=== PATIENT | female | born 2005 | race Caucasian/White ===

== ENCOUNTER 2024-05-11 10:25 | Emergency (ER) | payer OTHER, SELFPAY ==
--- NOTE | 2024-05-11 10:40 | ED_ITS ---
HPI - URI/Sore Throat General Chief Complaint: Upper Respiratory Infection Stated Complaint: Eye Problems/Upper Respiratory Symptoms Time Seen by Provider: 05/11/24 10:53 Source: patient and RN notes reviewed Mode of arrival: ambulatory Limitations: no limitations History of Present Illness HPI Narrative: 18-year-old female presents with concern for sore throat, postnasal drainage. She also reports her left eye is red, irritated was matted shut when she woke up yesterday. She denies fever, aches, chills, sweats MD elicited complaint: sore throat and other (eye discharge) Related Data Allergies Allergy/AdvReac Type Severity Reaction Status Date / Time No Known Allergies Allergy Unverified 02/08/18 14:47 Review of Systems Review of Systems: CONSTITUTIONAL: Denies malaise, chills, sweats, or fever. EYES: Denies visual changes. Reports left eye redness, irritation, discharge. ENT: Reports rhinorrhea, sore throat. CARDIOVASCULAR: Denies chest pain, palpitations, or edema. RESPIRATORY: Denies cough. Denies dyspnea. GASTROINTESTINAL: Denies abdominal pain, nausea, vomiting, diarrhea SKIN: Denies rash or itching. MUSCULOSKELETAL: Denies myalgia. NEUROLOGIC: Denies headache. All systems reviewed & are unremarkable except as noted in HPI and below PMFSH Comments At time of signature, agree with nursing past medical, surgical, social and f amily history. There is no relevant family history pertinent to the presenting complaint Exam Narrative: GENERAL: Well-appearing, well-nourished, and in no acute distress. HEAD: Normocephalic EYES: PERRLA. Left sclera and conjunctiva injected ENT: Nares clear. Mucous membranes moist. TM pearly camp with sharp light reflex bilaterally; no tragal tenderness. Oropharynx not erythematous without lesions. Tonsils not enlarged and without exudate, no drooling, no hoarseness, no trismus, uvula midline. NECK: Supple. No lymphadenopathy CHEST: Clear to auscultation, breath sounds equal. No wheezing, rhonchi, rales, or stridor. No respiratory distress, speaks in full sentences. HEART: Regular rate and rhythm. No murmur heard. SKIN: Warm, dry, no rash. NEURO: Alert and oriented x3. PSYCH: Normal mood and affect Course Course Emergency Course: Patient is aware of diagnosis, understands and agrees to treatment plan. Anticipatory guidance given. Patient agrees to follow-up as directed and is jareth re of reasons to seek care at the emergency department. Portions of this record may have been created with voice recognition software Level of Care: Express [facility] Visit Vital Signs Vital signs: Reviewed. MDM - URI/Sore Throat MDM Narrative Medical decision making narrative: Differential diagnosis considered: Palumbo virus, strep pharyngitis, allergic rhinitis, upper respiratory tract infection, sinusitis, rhinosinusitis, nasopharyngitis. viral pharyngitis, otitis media, otitis externa, pneumonia, bronchitis, viral cough syndrome, viral syndrome, and influenza. Exam findings show no acute concerns or changes; patient is non-toxic appearing and is in no distress. Patient is appropriate for outpatient treatment and follow-up. Lab Data Attestation: I reviewed the patient's lab results. Critical Care Time Critical Care Time Critical Care Time: No Discharge Plan Discharge Clinical Impression: Conjunctivitis Patient Disposition: Home, Self-Care Condition: Stable Instructions: Conjunctivitis (ED) Additional Instructions: Your rapid strep swab was negative today at [facility]. A throat culture will be sent to the laboratory for further testing. If the test is positive, you will receive a phone call within 48 hours and an appropriate antibiotic will be initiated at that time. Do not touch or rub your eye. Use a warm or cool washcloth on your eye for comfort Use eyedrops as directed Practice good handwashing and hygiene to prevent spread of infection You may take Tylenol or ibuprofen for pain Follow-up with PCP or life science research assistant if condition is not improving in 2-3days. Go to the emergency room if you have pain behind your eye, pressure behind your eye, difficulty seeing, or other severe symptoms Patient Language: Faroese Prescriptions: New polymyxin B sulf-trimethoprim 10,000 unit- 1 mg/mL drops 1 drp LEFT EYE Q3H 7 Days Qty: 10 0RF Rx Instructions: while awake; do not exceed 6 doses in 24 hours Follow-up/Referrals: PHYSICIAN,MOBILE DESIGNER [Primary Care Provider] - Time of Disposition: 11:02
[2024-05-11 10:43] VITALS: BP 132/87; PULSE 91; RESP 16; TEMP 36.4; O2SAT 100
[2024-05-11 11:09] LABS: EDCOVIDSCREEN Negative (Negative); EDINFLUASCREEN Negative (Negative); EDINFLUBSCREEN Negative (Negative); EDSTREPNEGPOS1 Negative (Negative)
== END 2024-05-11 11:02 | disposition home or self-care (01) ==
PROVIDERS: Emergency Provider Nurse Practitioner
DX: H10.9 Unspecified conjunctivitis (principal); Z20.822 Contact with and (suspected) exposure to COVID-19
CPT/HCPCS: 87081; 87426; 87804; 87880; 99203; G0463

== ENCOUNTER 2024-08-19 10:36 | Emergency (ER) | payer OTHER, SELFPAY ==
--- NOTE | 2024-08-19 10:37 | ED.URI ---
HPI - URI/Sore Throat General Chief Complaint: Upper Respiratory Infection Stated Complaint: SCRATCHY THROAT/SINUS CONGESTION Time Seen by Provider: 08/19/24 10:37 Source: patient Mode of arrival: ambulatory Limitations: no limitations History of Present Illness HPI Narrative: Sari is a 18-year-old female patient presenting to the clinic today with complaints of scratchy throat, cough, ear pressure, and sinus congestion x1 day. She reports no fever, chills, body aches. Denies any chest pain shortness of breath. No known sick contacts. Has not tried any OTC medications MD elicited complaint: sore throat and nasal congestion Related Data Allergies Allergy/AdvReac Type Severity Reaction Status Date / Time No Known Allergies Allergy Verified 08/19/24 10:48 Review of Systems Review of Systems: Pertinent positives per HPI. Patient denies any fever, chills, rash, headache, visual changes, dizziness,shortness of breath, chest pain, palpitations, nausea, vomiting, diarrhea, constipation, abdominal pain, or any urinary issues. [facility] Past Medical History Medical History History of epilepsy Migraines Social History Social History Smoking status: Current some day smoker Tobacco type: e-cigarettes/vaping Alcohol intake: never Substance use: never Substance use type: does not use Do You Feel Safe in your Home?: Yes Lack of Transportation: No Lack of Food: Never True Current Housing: I Have Housing Concerned About Future Housing: No Difficulty Paying Gas/Electric Bills: No Difficulty Paying for Meds: No Currently Unemployed: No Difficulty w/ Childcare or Family Care: No Comments At the time of my signature, I reviewed and agree with the nursing past medical, surgical, social, and family history. There is no relevant family history pertinent to the patient complaint. Exam Narrative: General: Well-developed, well nourished, in no apparent distress Head: Normocephalic, atraumatic Eyes: Pupils equally round and reactive to light bilaterally, EOM intact, sclera and conjunctive clear, no discharge, lids normal Ears: TMs intact and congested, ear canals clear, no drainage, grossly hearing normal. Nose: Nares patent, clear nasal discharge, no inflammation, no sinus tenderness. Mouth: Oral pharynx without lesions or masses, good dentition, MMM. Postnasal drip Neck: Supple, trachea midline, no enlargement of anterior or posterior cervical nodes, no thyroid masses or goiter palpable. Cardio: Regular rate and rhythm, s1 and s2 normal, no murmur appreciated. Resp: Clear to auscultation bilaterally, no rhonchi, rales, wheezing or rubs Course Course Emergency Course: Portions of this record may have been created with voice recognition software. Level of Care: Express Care Visit Vital Signs Vital signs: Vital Signs Temperature 36.3 C L 08/19/24 10:42 Pulse Rate 80 08/19/24 10:42 Respiratory Rate 16 08/19/24 10:42 Blood Pressure 119/79 08/19/24 10:42 Pulse Oximetry 100 08/19/24 10:42 Oxygen Delivery Room Air 08/19/24 10:42 Temperature 36.3 C L 08/19/24 10:42 Pulse Rate 80 08/19/24 10:42 Respiratory Rate 16 08/19/24 10:42 Blood Pressure 119/79 08/19/24 10:42 Pulse Oximetry 100 08/19/24 10:42 Oxygen Delivery Room Air 08/19/24 10:44 Vital signs reviewed MDM - URI/Sore Throat MDM Narrative Medical decision making narrative: At the time of visit patient is resting comfortably on the exam table. Patient appears to be nontoxic. Labs: Strep test was negative in the clinic today. We will send strep for culture. Plan: I suspect patient has URI/pharyngitis. Supportive measures were discussed with the patient and they voiced understanding discharge instructions and agrees to treatment plan. Return precautions reviewed Differential Diagnosis Differential diagnosis: Likely upper respiratory infection, otitis media, sinusitis, viral infection, bronchitis, influenza, pharyngitis and other (COVID) Discharge Plan Discharge Clinical Impression: Upper respiratory infection Qualifiers: URI type: unspecified URI Qualified Code(s): J06.9 - Acute upper respiratory infection, unspecified Pharyngitis Qualifiers: Pharyngitis/tonsillitis etiology: unspecified etiology Qualified Code(s): J02.9 - Acute pharyngitis, unspecified Patient Disposition: Home, Self-Care Condition: Stable Instructions: Antibiotic Form, Cold Symptoms (ED) Additional Instructions: Strep test was negative in the clinic today. We will send strep for culture. May take DayQuil/NyQuil for cold/flu symptoms Increase fluids and stay well hydrated Tylenol/motrin for pain/fever Flonase and OTC antihistamines as directed Vicks vapor rub to open sinuses Sinus rinses for congestion Cepacol spray, cough drops, throat lozenges, warm tea with honey/lemon, gargle salt water to soothe throat BRAT diet for diarrhea Clear liquids x 24 hours then advance as tolerated for nausea/vomiting Go to the ED if you develop a worsening in your condition- high fever not controlled by Tylenol or Motrin, dehydration, weakness, lethargy, shortness of breath, or chest pain. Follow up with your PCP in 3-5 days if symptoms persist. Patient Language: Martiniquais Prescriptions: No Action rizatriptan 5 mg tablet,disintegrating See Rx Instructions PO .COMPLEX Qty: 9 1RF Rx Instructions: take 1 tablet at onset of headache; if no relief, may repeat 1 tablet after at least 2 hrs PO Qulipta 30 mg tablet 30 mg PO DAILY Qty: 30 2RF Ubrelvy 50 mg tablet 50 mg PO ONCE PRN (Reason: migraine headache) Qty: 10 1RF Rx Instructions: as a single dose; may repeat once in >=2 hours after first dose if needed Follow-up/Referrals: Stephen Hernandez MD [Primary Care Provider] - Stand Alone Forms: Work/School Release IP Time of Disposition: 10:48 Quality NIHSS Nursing Documentation ED NIHSS nursing documentation: reviewed/agree
[2024-08-19 10:42] VITALS: BP 119/79; PULSE 80; RESP 16; TEMP 36.3; O2SAT 100
[2024-08-19 11:03] LABS: EDSTREPNEGPOS1 Negative (Negative)
== END 2024-08-19 11:01 | disposition home or self-care (01) ==
PROVIDERS: Emergency Provider Nurse Practitioner Family; PCP Family Medicine
DX: J06.9 Acute upper respiratory infection, unspecified (principal); J02.9 Acute pharyngitis, unspecified; F17.290 Nicotine dependence, other tobacco product, uncomplicated
CPT/HCPCS: 87081; 87880; 99213; G0463

== ENCOUNTER 2025-01-03 15:12 | Emergency (ER) | payer OTHER, SELFPAY ==
--- OUTSIDE RECORDS SUMMARY | 2025-01-03 15:14 | XMS_ITS | Clinical Summary ---
Author Organization [facility] Address [address] [place] [address] Care Team Providers Care Pilates Coordinator Name Role Phone Debby Banks MD Primary Care Provider Allergies Active Allergy Reactions Criticality Noted Date Comments Sulfa (Sulfonamide Antibiotics) Urticaria Medium 01/2010 Medications lidocaine viscous (XYLOCAINE) 2 % solutionIndicati ons:Strep pharyngitis Apply 10 mL to the mouth or throat every 6 (six) hours as needed (sore throat) May mix with 30 ml of Mylanta 100 mL Active Additional Information Patient not taking.Reported on 04/09/2024 Active Problems Problem Noted Date Diagnosed Date 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 Bilateral foot pain 2. Hallux valgus, acquired, bilateral 3. Metatarsalgia of both feet Bilateral foot pain likely secondary to transfer metatarsalgia as a result of bilateral hallux valgus. PLAN: 1. Questions solicited and answered. 2. Continue with existing conservative treatment program: shoe inserts and metatarsal pads 3. Medications Prescribed: none 4. Activity Restrictions: none 5. Weightbearing status: No Restrictions 6. Follow up: in 3 month(s) without X-rays Cephalalgia 07/25/2012 Spells of trembling 07/25/2012 Bronchial asthma 12/19/2011 Epilepsy 02/14/2011 Chiari malformation type I 11/03/2010 Seizure syndrome 11/03/2010 Immunizations Immunization Administration Dates Next Due DTaP 08/30/2006, 6,06/26/2005,03/15 DTaP / Hep B / IPV 08/01/2005,06/26/2005, 005 DTaP / IPV 12/26/2009 DTaP 5 Pertussis 12/26/2009 HPV9 2016,08/06/2016,02/24/2016 Hep A, Ped Unspecified 12/11/2007,12/30/2006 Hep A, Pediatric 12/11/2007,12/30/2006 Hep B, Adolescent or Pediatric 6,06/26/2005,03/15/2005,12/27 HiB 08/30/2006, 6,06/26/2005,03/15 Hib (PRP-D) 08/30/2006, 6,06/26/2005,03/15 IPV 08/30/2006, 6,06/26/2005,03/15 Influenza, Quadrivalent, Kimberli l Culture-based MDCK, Preservative Free, Antibiotic Free, Intramuscular 03/27/2021 Influenza, Quadrivalent, Spl it, Intramuscular 03/16/2019 Influenza, Quadrivalent, Spl it, Preservative Free, Intramuscular 02/16/2020,02/11/2018,02/22/2017,02/23,02/21/2016 Influenza, Split 04/25/2009,03/29/2008 Influenza, Unspecified 05/22/2007,05/21/2006,09/2005 MMR 12/26/2009,2005 Meningococcal B, Recombinant (Trumenba) 01/05/2021 Meningococcal MCV4P (Menactra) 01/05/2021,2015 Pneumococcal Conjugate 7-Valent 12/28/19 06,08/01/2005,06/26/2005,03/15 Pneumococcal Conjugate, Unspecified 12/18,08/01/2005,06/26/2005,03/15 Tdap 12/28/2015 Varicella 12/26/2009,08/30/2006 Surgical History Surgery Date Site/Laterality Comments NO PAST SURGERIES Medical History Medical History Date Comments Functional neurological symptom disorder with at tacks or seizures Epilepsy (HCC) Asthma Family History Medical History Relation Name Comments COPD Father Lung cancer Maternal Grandfather Lung disease Paternal Grandfather Diabetes Paternal Grandmother Relation Name Status Comments Father Maternal Grandfather Paternal Grandfather Paternal Grandmother Social History Tobacco Use Types Packs/Day Years Used Date Smoking Tobacco: Never Smokeless Tobacco: Never Comments No Sex and Gender Information Value Date Recorded Sex Assigned at Not on file Legal Sex Female 7:12 PM PEANUT FARMER Gender Identity Not on file Sexual Orientation Not on file History Length Weight Head Circum Date/Time Gestation Age D/C Weight APGARs Delivery Method Feeding 2004 Full term Obstetrics History Last Filed Vital Signs Vital Sign Reading Time Taken Comments Blood Pressure 120/78 04/09/2024 9:32 AM PEANUT FARMER Pulse 95 04/09/2024 9:32 AM PEANUT FARMER Temperature 36.8 C (98.2 F) 04/09/2024 9:32 AM PEANUT FARMER Respiratory Rate 20 04/09/2024 9:32 AM PEANUT FARMER Oxygen Saturation 99% 04/09/2024 9:32 AM PEANUT FARMER Inhaled Oxygen Concentration - - Weight 109.3 kg (241 lb) 04/09/2024 9:32 AM PEANUT FARMER Height 170.2 cm (5' 7) 04/09/2024 9:32 AM PEANUT FARMER Body Mass Index 37.75 04/09/2024 9:32 AM PEANUT FARMER Plan of Treatment Health Maintenance Due Date Last Done Comments Depression Screening 2004 Hepatitis C Screening 2004 Pneumococcal vaccine <65 (1 of 1 - PPSV23, PCV20, or PCV21) 2010 2005, 2005, 08/01/2005, Additional history exists Meningococcal B Vaccine (2 o f 2 - Trumenba SCDM 2-dose series) 07/08/2021 01/05/2021 Regular Well Visit/Exam 18-64 2022 Covid-19 Vaccine (3 - 2023-2 5 season) 2024 12/19/2020, 11/28/2020 Influenza Vaccine (#1) 2025 , 03/27/2021, 02/16/2020, Additional history exists DTaP/Tdap/Td Vaccine (7 - Td or Tdap) 2025 12/28/2015, 12/26/2009, 12/26/2009, Additional history exists Hepatitis B Screening Completed 08/01/2005 , 08/01/2005, 06/26/2005, Additional history exists Varicella Vaccines Completed 12/26/2009, 08/30/2006 HPV Vaccines Completed 2016, 07/19, 02/24/2016 Meningococcal Vaccine Completed 01/05/2021, 016 Insurance [facility] Care Teams Pilates Coordinator Relationship Specialty Start Date End Date Debby Banks MD PCP - General Pediatrics 12/15/20
--- OUTSIDE RECORDS SUMMARY | 2025-01-03 15:14 | XMS_ITS | Clinical Summary ---
Author Organization [facility] Address [address] [place] [address] Care Team Providers Care Twister In Name Role Phone Hannah Ponce MD Unavailable Debby Banks MD Primary Care Provider Source Comments [facility],non-owned Affiliates and Associated Physician Practices is amultiple site organization consisting of ambulatory clinics and hospital sitesin [place], [place], [place] and [place]. This disclosure is being madepursuant to the Care Everywhere program and may not contain all information available regarding this patient. Last updated 18.[facility] Allergies Active Allergy Reactions Criticality Noted Date Comments Sulfa Drugs Urticaria 12/26/2009 Medications * Be aware that medications may not be up to date on this document. Alwaysverify current medications with the patient. 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 11/03/2010 Extrinsic asthma 12/26/2009 Overview (02/17/2015): BMI (body mass index), pedia tric, 85% to less than 95% for age 0812/26/2009 Immunizations Immunization Administration Dates Next Due [employer] primary monoval ent 12+ yr 0.3mL Purple cap 12/19/2020,11/28/2020 DTAP/IPV 12/26/2009 DTaP VACCINE IM (6wk-6yrs) 08/30/2006,,06/26/2005,2004 HEP A PEDS 2 DOSE 12/11/2007,12/30/2006 HEP B VACCINE, PED/ADOL 08/01/2005,06/26,03/15/2005,2004 HIB BOOSTER 08/30/2006, 6,06/26/2005,2004 INFLUENZA VACCINE 03/29/2008, 8,05/21/2006,2005 MMR 12/26/2009,2005 PNEUMOCOCCAL CONJ, PEDS 2005,08/01,06/26/2005,2004 POLIO IPV 08/01/2005,06/26/2005,03/15/2005 VARICELLA 12/26/2009,08/30/2006 Social History Tobacco Use Types Packs/Day Years Used Date Smoking Tobacco: Never Assessed Comments Unknown Sex and Gender Information Value Date Recorded Sex Assigned at Not on file Legal Sex Female 6:41 AM FITNESS SALES CONSULTANT Gender Identity Not on file Sexual Orientation Not on file Last Filed Vital Signs Vital Sign Reading Time Taken Comments Blood Pressure 128/88 02/20/2021 10:22 AM CDT Pulse 88 11/03/2010 1:12 PM CDT Temperature 37 C (98.6 F) 11/03/2010 1:12 PM CDT Respiratory Rate - - Oxygen Saturation 100% 03/30/2010 1:32 PM FITNESS SALES CONSULTANT Inhaled Oxygen Concentration - - Weight 108.3 kg (238 lb 12.1 oz) 2020 10:22 AM CDT Height 186.5 cm (6' 1.43) 02/20/2021 1 0:22 AM CDT Body Mass Index 31.14 02/20/2021 10:22 AM CDT Plan of Treatment Health Maintenance Due Date Last Done Comments DTAP/TDAP/TD VACCINES (6 - Tdap) 12/28/2015 12/26/2009, 08/30/2006, 08/01/2005, Additional history exists HIV SCREENING 12/28/2019 HPV VACCINE (1 - 3-dose series) 12/28/2019 CHLAMYDIA/GONORRHEA SCREENING 2020 MENINGOCOCCAL (Group B) VACCINE SHARED DECISION-MAKING (1 of 2 - Standard) 2020 HEPATITIS C SCREENING 12/23/2022 COVID-19 VACCINE ( season) 2024 12/19/2020, 11/28/2020 DEPRESSION SCREENING 05/20/2024 INFLUENZA VACCINE (#1) 2025 8, 05/22/2007, 05/21/2006, Additional history exists ZOSTER VACCINE (1 of 2) 2054 HEPATITIS B VACCINE Completed 08/01/2005, 06/26/2005, 03/15/2005, Additional history exists PNEUMOCOCCAL VACCINE Completed 2005, 08/01/2005, 06/26/2005, Additional history exists HIB VACCINE Completed 08/30/2006, 07/18, 06/26/2005, Additional history exists MENINGOCOCCAL GROUPS A/C/Y/W VACCINE Aged Out No longer eligible based on patient's age to complete this topic Insurance [facility] [place] [address] Care Teams Twister In Relationship Specialty Start Date End Date Hannah Ponce MD PCP - Pediatrics 04/04/09 Debby Banks MD [address] [place] [address] PCP - General Pediatrics 02/13/21
--- OUTSIDE RECORDS SUMMARY | 2025-01-03 15:14 | XMS_ITS | Encounter Summary ---
Author Organization [facility] Address [address] [place] [address] Care Team Providers Care Color Repairer Name Role Phone Debby Banks MD Primary Care Provider [phone] Encounter Details Date Type Department Care Team (Late st Contact Info) Description 01/27/2021 Telephone [facility] Department [address] [place] [phone] Sadie Steven, RT Social History Tobacco Use Types Packs/Day Years Used Date Smoking Tobacco: Never Assessed Comments Unknown Sex and Gender Information Value Date Recorded Sex Assigned at Not on file Legal Sex Female 7:12 PM DOOR SERVICEMAN Gender Identity Not on file Sexual Orientation Not on file documented as of this encounter Plan of Treatment Not on file documented as of this encounter Visit Diagnoses Not on filedocumented in this encounter Additional Health Concerns Infection Onset Date Last Indicated Resolved Time COVID: Suspected 11/15/2023 11/15/2023 11/15/2023 9:41 AM CDT COVID: Suspected 12/12/2023 12/12/2023 12/12/2023 9:51 AM CDT COVID19 12/12/2023 12/12/2023 12/22/2023 3:05 AM CDT COVID: Suspected 04/09/2024 04/09/2024 04/09/2024 9:49 AM DOOR SERVICEMAN documented as of this encounter Care Teams Color Repairer Relationship Specialty Start Date End Date Debby Banks MD PCP - General Pediatrics 12/15/20 documented as of this encounter
[2025-01-03 15:18] VITALS: BP 129/83; PULSE 100; RESP 16; TEMP 36.4; O2SAT 98
--- OUTSIDE RECORDS SUMMARY | 2025-01-03 15:37 | XMS_ITS | Clinical Summary ---
Author Organization [facility] Address [address] [place] [address] Care Team Providers Care Diesel Technician Name Role Phone Hannah Ponce MD Unavailable Debby Banks MD Primary Care Provider Source Comments [facility],non-owned Affiliates and Associated Physician Practices is amultiple site organization consisting of ambulatory clinics and hospital sitesin [place], [place], [place] and [place]. This disclosure is being madepursuant to the Care Everywhere program and may not contain all information available regarding this patient. Last updated 18.[facility] Allergies Active Allergy Reactions Criticality Noted Date [...] 0812/26/2009 Immunizations Immunization Administration Dates Next Due [employer] primary monoval ent 12+ yr 0.3mL Purple [...] on file Legal Sex Female 6:41 AM SCOOPING MACHINE TENDER Gender Identity Not on file Sexual Orientation Not on file Last Filed Vital Signs Vital Sign Reading Time Taken Comments Blood Pressure 128/88 02/20/2021 10:22 AM CDT Pulse 88 11/03/2010 1:12 PM CDT Temperature 37 C (98.6 F) 11/03/2010 1:12 PM CDT Respiratory Rate - - Oxygen Saturation 100% 03/30/2010 1:32 PM SCOOPING MACHINE TENDER Inhaled Oxygen Concentration - - Weight 108.3 [...] patient's age to complete this topic Insurance [facility] [address] [address] Care Teams Diesel Technician Relationship Specialty Start Date End Date Hannah Ponce MD PCP - Pediatrics 04/04/09 Debby Banks MD [address] [place] [address] PCP - General Pediatrics 02/13/21
--- OUTSIDE RECORDS SUMMARY | 2025-01-03 15:37 | XMS_ITS | Clinical Summary ---
Author Organization [facility] Address [address] [place] [address] Care Team Providers Care Cafeteria Director Name Role Phone Debby Banks MD Primary Care Provider [phone] Allergies Active Allergy Reactions Criticality Noted Date [...] on file Legal Sex Female 7:12 PM HAND CIGAR MAKING SUPERVISOR Gender Identity Not on file Sexual Orientation Not on file History Length Weight Head Circum Date/Time Gestation Age D/C Weight APGARs Delivery Method Feeding 2004 Full term Obstetrics History Last Filed Vital Signs Vital Sign Reading Time Taken Comments Blood Pressure 120/78 04/09/2024 9:32 AM HAND CIGAR MAKING SUPERVISOR Pulse 95 04/09/2024 9:32 AM HAND CIGAR MAKING SUPERVISOR Temperature 36.8 C (98.2 F) 04/09/2024 9:32 AM HAND CIGAR MAKING SUPERVISOR Respiratory Rate 20 04/09/2024 9:32 AM HAND CIGAR MAKING SUPERVISOR Oxygen Saturation 99% 04/09/2024 9:32 AM HAND CIGAR MAKING SUPERVISOR Inhaled Oxygen Concentration - - Weight 109.3 kg (241 lb) 04/09/2024 9:32 AM HAND CIGAR MAKING SUPERVISOR Height 170.2 cm (5' 7) 04/09/2024 9:32 AM HAND CIGAR MAKING SUPERVISOR Body Mass Index 37.75 04/09/2024 9:32 AM HAND CIGAR MAKING SUPERVISOR Plan of Treatment Health Maintenance Due Date [...] 02/24/2016 Meningococcal Vaccine Completed 01/05/2021, 016 Insurance [facility] Care Teams Cafeteria Director Relationship Specialty Start Date End Date Debby Banks MD PCP - General Pediatrics 12/15/20
--- OUTSIDE RECORDS SUMMARY | 2025-01-03 15:37 | XMS_ITS | Encounter Summary ---
Author Organization [facility] Healthcare Address [address] [place] [address] Care Team Providers Care Timber Harvester Operator Name Role Phone Debby Banks MD Primary Care Provider [phone] Encounter Details Date Type Department Care Team (Late st Contact Info) Description 01/27/2021 Telephone [facility] Department [address] [place] [phone] Sadie Steven, RT Social History Tobacco Use Types Packs/Day Years Used Date Smoking Tobacco: Never Assessed Comments Unknown Sex and Gender Information Value Date Recorded Sex Assigned at Not on file Legal Sex Female 7:12 PM COOK BOX FILLER Gender Identity Not on file Sexual Orientation [...] COVID: Suspected 04/09/2024 04/09/2024 04/09/2024 9:49 AM COOK BOX FILLER documented as of this encounter Care Teams Timber Harvester Operator Relationship Specialty Start Date End Date Debby Banks MD PCP - General Pediatrics 12/15/20 documented as of this encounter
--- NOTE | 2025-01-03 16:17 | ED.SKABFB ---
HPI - Skin/Abscess/Foreign Bdy General Chief complaint: Skin/Abscess/Foreign Body Stated complaint: cysyt Time Seen by Provider: 01/03/25 15:24 History of Present Illness HPI narrative: Patient is a 19-year-old female who presents ER with pain over her gluteal cleft. She has been running a car few days ago when she started the pain. She has noticed increased swelling a little bit of bleeding from the area. No fevers or chills or sweats. She has not had similar symptoms previously. Related Data Allergies Allergy/AdvReac Type Severity Reaction Status Date / Time No Known Allergies Allergy Verified 01/03/25 16:58 Review of Systems Review of Systems: All systems reviewed & are unremarkable except as noted in HPI and below Constitutional: Constitutional: Reports no additional constitutional complaints Cardiovascular: Cardiovascular: Reports no additional cardiovascular complaints Respiratory: Respiratory: Reports no additional respiratory complaints Gastrointestinal: Gastrointestinal: Reports no additional gastrointestinal complaints PMFSH Past Medical History Medical History History of epilepsy Migraines Social History Social History Smoking status: Current some day smoker Tobacco type: e-cigarettes/vaping Alcohol intake: never Substance use: never Substance use type: does not use Do You Feel Safe in your Home?: Yes Lack of Transportation: No Lack of Food: Never True Current Housing: I Have Housing Concerned About Future Housing: No Difficulty Paying Gas/Electric Bills: No Difficulty Paying for Meds: No Currently Unemployed: No Difficulty w/ Childcare or Family Care: No Exam Narrative: GENERAL: Well-appearing, well-nourished, and in no acute distress. HEAD: Normocephalic, atraumatic. ENT: Mucous membranes moist. ABDOMEN: Soft, nontender, nondistended. EXTREMITIES: Normal range of motion. No edema. SKIN: Warm, dry, no rash. Pilonidal abscesses gluteal cleft. NEURO: Alert and oriented x3. PSYCH: Normal mood and affect. Course Course Emergency Course: Tolerated drainage. Discharge home. Vital Signs Vital signs: Vital Signs Temperature 97.6 F 01/03/25 15:18 Pulse Rate 100 01/03/25 15:18 Respiratory Rate 16 01/03/25 15:18 Blood Pressure 129/83 01/03/25 15:18 Pulse Oximetry 98 01/03/25 15:18 Temperature 97.6 F 01/03/25 15:18 Pulse Rate 93 01/03/25 16:51 Respiratory Rate 18 01/03/25 16:51 Blood Pressure 127/77 01/03/25 16:51 Pulse Oximetry 100 01/03/25 16:51 Procedures Abscess I/D other: Date of Incision: 01/03/25 Time of Incision: 16:10 Local Anesthetic: lidocaine 1% and with epi Amount of anesthesia used (mL): 8 Technique: incised with #11 blade Irrigation: No Packing used?: iodoform I&D Results: Pus Abcess I&D Additional Comments: pilonidal cyst drainage Discharge Plan Discharge Clinical Impression: Pilonidal cyst Patient Disposition: Home Condition: Stable Instructions: Antibiotic Form, Pilonidal Cyst (ED) Additional Instructions: Remove your packing in 48 hours. Return the ER if you have increased pain, you have fever over 100.4? F, or you have additional concerns. Patient Language: Belarusian Prescriptions: New sulfamethoxazole-trimethoprim [Bactrim DS] 800-160 mg tablet 1 tablet PO Q12H Qty: 14 0RF No Action rizatriptan 5 mg tablet,disintegrating See Rx Instructions PO .COMPLEX Qty: 9 1RF Rx Instructions: take 1 tablet at onset of headache; if no relief, may repeat 1 tablet after at least 2 hrs PO Ubrelvy 50 mg tablet 50 mg PO ONCE PRN (Reason: migraine headache) Qty: 10 1RF Rx Instructions: as a single dose; may repeat once in >=2 hours after first dose if needed Qulipta 30 mg tablet 30 mg PO DAILY Qty: 30 2RF Follow-up/Referrals: Stephen Hernandez MD [Primary Care Provider] - Aguilar Urban DO [Physician] - 1 Week Stand Alone Forms: Work/School Release IP
[2025-01-03 16:48] VITALS: BP 127/77; PULSE 93; RESP 18; O2SAT 100
[2025-01-03 16:51] VITALS: BP 127/77; PULSE 93; RESP 18; O2SAT 100
== END 2025-01-03 17:02 | disposition home or self-care (01) ==
PROVIDERS: Emergency Provider Emergency Medicine; PCP Family Medicine
DX: L05.91 Pilonidal cyst without abscess (principal)
CPT/HCPCS: 10080; 99283; J2004

== ENCOUNTER 2025-01-03 23:31 | Emergency (ER) | payer OTHER, SELFPAY ==
[2025-01-03 23:32] VITALS: BP 137/79; PULSE 111; RESP 18; TEMP 36.6; O2SAT 99
--- OUTSIDE RECORDS SUMMARY | 2025-01-03 23:33 | XMS_ITS | Clinical Summary ---
Author Organization [facility] Address [address] [place] [address] Care Team Providers Care Student Activities Director Name Role Phone Hannah Ponce MD Unavailable Debby Banks MD Primary Care Provider Source Comments [facility],non-owned Affiliates and Associated Physician Practices is amultiple site organization consisting of ambulatory clinics and hospital sitesin [place], [place], [place] and [place]. This disclosure is being madepursuant to the Care Everywhere program and may not contain all information available regarding this patient. Last updated 18.[facility] Allergies Active Allergy Reactions Criticality Noted Date [...] 0812/26/2009 Immunizations Immunization Administration Dates Next Due Microarrays primary monoval ent 12+ yr 0.3mL Purple [...] on file Legal Sex Female 6:41 AM EDGE SAWYER Gender Identity Not on file Sexual Orientation Not on file Last Filed Vital Signs Vital Sign Reading Time Taken Comments Blood Pressure 128/88 02/20/2021 10:22 AM CDT Pulse 88 11/03/2010 1:12 PM CDT Temperature 37 C (98.6 F) 11/03/2010 1:12 PM CDT Respiratory Rate - - Oxygen Saturation 100% 03/30/2010 1:32 PM EDGE SAWYER Inhaled Oxygen Concentration - - Weight 108.3 [...] patient's age to complete this topic Insurance [facility] [place] [address] [address] [place] [address] Care Teams Student Activities Director Relationship Specialty Start Date End Date Hannah Ponce MD PCP - Pediatrics 04/04/09 Debby Banks MD [address] [place] [address] PCP - General Pediatrics 02/13/21
--- OUTSIDE RECORDS SUMMARY | 2025-01-03 23:33 | XMS_ITS | Encounter Summary ---
Author Organization [facility] Healthcare Address [address] [place] [address] Care Team Providers Care Boot Turner Name Role Phone Debby Banks MD Primary Care Provider [phone] Encounter Details Date Type Department Care Team (Late st Contact Info) Description 01/27/[address] [facility] Department [address] [place] [phone] Sadie Steven, RT Social History Tobacco Use Types Packs/Day Years Used Date Smoking Tobacco: Never Assessed Comments Unknown Sex and Gender Information Value Date Recorded Sex Assigned at Not on file Legal Sex Female 7:12 PM SUPERVISOR ALUM PLANT Gender Identity Not on file Sexual Orientation [...] COVID: Suspected 04/09/2024 04/09/2024 04/09/2024 9:49 AM SUPERVISOR ALUM PLANT documented as of this encounter Care Teams Boot Turner Relationship Specialty Start Date End Date Debby Banks MD PCP - General Pediatrics 12/15/20 documented as of this encounter
--- OUTSIDE RECORDS SUMMARY | 2025-01-03 23:33 | XMS_ITS | Clinical Summary ---
Author Organization [facility] Address [address] [place] [address] Care Team Providers Care Airplane Captain Name Role Phone Debby Banks MD Primary Care Provider [phone] Allergies Active Allergy Reactions Criticality Noted Date [...] on file Legal Sex Female 7:12 PM BLENDING OPERATOR Gender Identity Not on file Sexual Orientation Not on file History Length Weight Head Circum Date/Time Gestation Age D/C Weight APGARs Delivery Method Feeding 2004 Full term Obstetrics History Last Filed Vital Signs Vital Sign Reading Time Taken Comments Blood Pressure 120/78 04/09/2024 9:32 AM BLENDING OPERATOR Pulse 95 04/09/2024 9:32 AM BLENDING OPERATOR Temperature 36.8 C (98.2 F) 04/09/2024 9:32 AM BLENDING OPERATOR Respiratory Rate 20 04/09/2024 9:32 AM BLENDING OPERATOR Oxygen Saturation 99% 04/09/2024 9:32 AM BLENDING OPERATOR Inhaled Oxygen Concentration - - Weight 109.3 kg (241 lb) 04/09/2024 9:32 AM BLENDING OPERATOR Height 170.2 cm (5' 7) 04/09/2024 9:32 AM BLENDING OPERATOR Body Mass Index 37.75 04/09/2024 9:32 AM BLENDING OPERATOR Plan of Treatment Health Maintenance Due Date [...] 02/24/2016 Meningococcal Vaccine Completed 01/05/2021, 016 Insurance [facility] Care Teams Airplane Captain Relationship Specialty Start Date End Date Debby Banks MD PCP - General Pediatrics 12/15/20
[2025-01-04 03:47] VITALS: BP 111/60; PULSE 84; RESP 17; O2SAT 100
--- OUTSIDE RECORDS SUMMARY | 2025-01-04 04:12 | XMS_ITS | Encounter Summary ---
Author Organization [facility] Healthcare Address [address] [place] [address] Care Team Providers Care Head Of Training And Development Name Role Phone Debby Banks MD Primary Care Provider [phone] Encounter Details Date Type Department Care Team (Late st Contact Info) Description 01/27/2021 Telephone [facility] Department [address] [place] [phone] Sadie Steven, RT Social History Tobacco Use Types Packs/Day Years Used Date Smoking Tobacco: Never Assessed Comments Unknown Sex and Gender Information Value Date Recorded Sex Assigned at Not on file Legal Sex Female 7:12 PM GEOPHYSICAL MANAGER Gender Identity Not on file Sexual Orientation [...] COVID: Suspected 04/09/2024 04/09/2024 04/09/2024 9:49 AM GEOPHYSICAL MANAGER documented as of this encounter Care Teams Head Of Training And Development Relationship Specialty Start Date End Date Debby Banks MD PCP - General Pediatrics 12/15/20 documented as of this encounter
--- OUTSIDE RECORDS SUMMARY | 2025-01-04 04:12 | XMS_ITS | Clinical Summary ---
Author Organization [facility] Address [address] [place] [address] Care Team Providers Care Track Mechanic Name Role Phone Debby Banks MD Primary Care Provider [phone] Allergies Active Allergy Reactions Criticality Noted Date [...] on file Legal Sex Female 7:12 PM PROPERTY ASSESSMENT MONITOR Gender Identity Not on file Sexual Orientation Not on file History Length Weight Head Circum Date/Time Gestation Age D/C Weight APGARs Delivery Method Feeding 2004 Full term Obstetrics History Last Filed Vital Signs Vital Sign Reading Time Taken Comments Blood Pressure 120/78 04/09/2024 9:32 AM PROPERTY ASSESSMENT MONITOR Pulse 95 04/09/2024 9:32 AM PROPERTY ASSESSMENT MONITOR Temperature 36.8 C (98.2 F) 04/09/2024 9:32 AM PROPERTY ASSESSMENT MONITOR Respiratory Rate 20 04/09/2024 9:32 AM PROPERTY ASSESSMENT MONITOR Oxygen Saturation 99% 04/09/2024 9:32 AM PROPERTY ASSESSMENT MONITOR Inhaled Oxygen Concentration - - Weight 109.3 kg (241 lb) 04/09/2024 9:32 AM PROPERTY ASSESSMENT MONITOR Height 170.2 cm (5' 7) 04/09/2024 9:32 AM PROPERTY ASSESSMENT MONITOR Body Mass Index 37.75 04/09/2024 9:32 AM PROPERTY ASSESSMENT MONITOR Plan of Treatment Health Maintenance Due Date [...] 02/24/2016 Meningococcal Vaccine Completed 01/05/2021, 016 Insurance [facility] Care Teams Track Mechanic Relationship Specialty Start Date End Date Debby Banks MD PCP - General Pediatrics 12/15/20
--- OUTSIDE RECORDS SUMMARY | 2025-01-04 04:12 | XMS_ITS | Clinical Summary ---
Author Organization [facility] Address [address] [address] Care Team Providers Care Microelectronics Engineer Name Role Phone Hannah Ponce MD Unavailable Debby Banks MD Primary Care Provider Source Comments [facility],non-owned Affiliates and Associated Physician Practices is amultiple site organization consisting of ambulatory clinics and hospital sitesin [place], [place], [place] and [place]. This disclosure is being madepursuant to the Care Everywhere program and may not contain all information available regarding this patient. Last updated 18.[facility] Allergies Active Allergy Reactions Criticality Noted [...] 0812/26/2009 Immunizations Immunization Administration Dates Next Due Create primary monoval ent 12+ yr 0.3mL Purple [...] on file Legal Sex Female 6:41 AM DAIRY LAB TECHNICIAN Gender Identity Not on file Sexual Orientation Not on file Last Filed Vital Signs Vital Sign Reading Time Taken Comments Blood Pressure 128/88 02/20/2021 10:22 AM CDT Pulse 88 11/03/2010 1:12 PM CDT Temperature 37 C (98.6 F) 11/03/2010 1:12 PM CDT Respiratory Rate - - Oxygen Saturation 100% 03/30/2010 1:32 PM DAIRY LAB TECHNICIAN Inhaled Oxygen Concentration - - Weight 108.3 [...] patient's age to complete this topic Insurance [facility] [place] [address] [address] Care Teams Microelectronics Engineer Relationship Specialty Start Date End Date Hannah Ponce MD PCP - Pediatrics 04/04/09 Debby Banks MD [address] [place] [address] PCP - General Pediatrics 02/13/21
--- NOTE | 2025-01-04 04:34 | ED_ITS ---
HPI - Wound/Laceration General Chief Complaint: Wound/Laceration Stated Complaint: cyst on bottom bleeding is not stopping Time Seen by Provider: 01/04/25 03:42 History of Present Illness HPI narrative: 19-year-old female presenting for check of her wound site. She just had an incision and drainage of an abscess in her pilonidal area. Endorses some drainage on her bandages and she want to get evaluated. No new symptoms. Otherwise well-appearing and not in any pain. Related Data Allergies Allergy/AdvReac Type Severity Reaction Status Date / Time No Known Allergies Allergy Verified 01/04/25 03:49 [facility] Past Medical History Medical History History of epilepsy Migraines Social History Social History Smoking status: Current some day smoker Tobacco type: e-cigarettes/vaping Alcohol intake: never Substance use: never Substance use type: does not use Do You Feel Safe in your Home?: Yes Lack of Transportation: No Lack of Food: Never True Current Housing: I Have Housing Concerned About Future Housing: No Difficulty Paying Gas/Electric Bills: No Difficulty Paying for Meds: No Currently Unemployed: No Difficulty w/ Childcare or Family Care: No Exam Narrative: GENERAL: [Well-appearing, well-nourished, and in no acute distress.] HEAD: [Normocephalic, atraumatic.] EYES: [PERRLA and EOMI.] ENT: Nares clear, no rhinorrhea or epistaxis. Mucous membranes moist. NECK: Supple. ABDOMEN: [Soft, nondistended], [nontender], [No rigidity or guarding] EXTREMITIES: Normal range of motion. [No edema.] SKIN: Warm, dry, no rash. Previous pilonidal abscess sites with new incision without any active drainage, no bleeding or purulent material noted. Bandaging appears dry with old serosanguineous discharge without any fresh bleeding or discharge. NEURO: [No focal deficits]. Alert and oriented [x3.] PSYCH: [Normal mood and affect.] Course Vital Signs Vital signs: Vital Signs Temperature 36.6 C 01/03/25 23:32 Pulse Rate 111 H 01/03/25 23:32 Respiratory Rate 18 01/03/25 23:32 Blood Pressure 137/79 01/03/25 23:32 Pulse Oximetry 99 01/03/25 23:32 Oxygen Delivery Room Air 01/03/25 23:32 Temperature 36.6 C 01/03/25 23:32 Pulse Rate 84 01/04/25 03:47 Respiratory Rate 01/04/25 03:47 Blood Pressure 111/60 01/04/25 03:47 Pulse Oximetry 100 01/04/25 03:47 Oxygen Delivery Room Air 01/03/25 23:32 MDM - Wound/Laceration MDM Narrative Medical decision making narrative: 19-year-old female presenting for check of her wound site. She just had an incision and drainage of an abscess in her pilonidal area. Endorses some drainage on her bandages and she want to get evaluated. No new symptoms. Otherwise well-appearing and not in any pain. Incision site appears normal, scant discharge from previous drainage is already dried on the bandaging without any fresh drainage or bleeding. No signs of concern, purulent drainage or any active bleeding. Patient counseled on wound care instructions and follow-up instructions and safe for discharge. Discharge Plan Discharge Clinical Impression: Wound check, abscess Patient Disposition: Home Condition: Stable Instructions: Antibiotic Form, Abscess Incision and Drainage (DC) Additional Instructions: Incision and drainage site looks great without any signs of concern. No active bleeding. I do expect minimal amounts of oozing and purulent/serosanguineous and even bloody discharge. Change the dressings carefully if it becomes soak through otherwise leave it be for 48 hours and then he can take out the packing. If you do end up changing the outer dressing try to maintain the packing inside the wound for 48 hours. Return with any emergent concerns otherwise take the antibiotics and follow-up with your doctors. Patient Language: Arabic Prescriptions: No Action rizatriptan 5 mg tablet,disintegrating See Rx Instructions PO .COMPLEX Qty: 9 1RF Rx Instructions: take 1 tablet at onset of headache; if no relief, may repeat 1 tablet after at least 2 hrs PO Ubrelvy 50 mg tablet 50 mg PO ONCE PRN (Reason: migraine headache) Qty: 10 1RF Rx Instructions: as a single dose; may repeat once in >=2 hours after first dose if needed sulfamethoxazole-trimethoprim [Bactrim DS] 800-160 mg tablet 1 tablet PO Q12H Qty: 14 0RF Qulipta 30 mg tablet 30 mg PO DAILY Qty: 30 2RF Follow-up/Referrals: Stephen Hernandez MD [Primary Care Provider] - Time of Disposition: 04:34
== END 2025-01-04 04:44 | disposition home or self-care (01) ==
PROVIDERS: Emergency Provider Student in an Organized Health Care Education/Training Program; PCP Family Medicine
DX: L05.01 Pilonidal cyst with abscess (principal)
CPT/HCPCS: 99281

== ENCOUNTER 2025-01-05 11:38 | Emergency (ER) | payer OTHER, SELFPAY ==
[2025-01-05 11:44] VITALS: BP 122/66; PULSE 92; RESP 18; TEMP 36.6; O2SAT 98
--- OUTSIDE RECORDS SUMMARY | 2025-01-05 12:07 | XMS_ITS | Clinical Summary ---
Author Organization [facility] Address [address] [facility] [place] [address] Care Team Providers Care Glass Artist Name Role Phone Hannah Ponce MD Unavailable Debby Banks MD Primary Care Provider Source Comments [facility],non-owned Affiliates and Associated Physician Practices is amultiple site organization consisting of ambulatory clinics and hospital sitesin [place], [place], [place] and [place]. This disclosure is being madepursuant to the Care Everywhere program and may not contain all information available regarding this patient. Last updated 18.[facility] Allergies Active Allergy Reactions Criticality Noted Date [...] 0812/26/2009 Immunizations Immunization Administration Dates Next Due SensorDynamics primary monoval ent 12+ yr 0.3mL Purple [...] on file Legal Sex Female 6:41 AM STEAM GENERATING POWERPLANT MECHANIC Gender Identity Not on file Sexual Orientation Not on file Last Filed Vital Signs Vital Sign Reading Time Taken Comments Blood Pressure 128/88 02/20/2021 10:22 AM CDT Pulse 88 11/03/2010 1:12 PM CDT Temperature 37 C (98.6 F) 11/03/2010 1:12 PM CDT Respiratory Rate - - Oxygen Saturation 100% 03/30/2010 1:32 PM STEAM GENERATING POWERPLANT MECHANIC Inhaled Oxygen Concentration - - Weight 108.3 [...] patient's age to complete this topic Insurance [facility] [place] [address] Care Teams Glass Artist Relationship Specialty Start Date End Date Hannah Ponce MD PCP - Pediatrics 04/04/09 Debby Banks MD [address] [place] [address] PCP - General Pediatrics 02/13/21
--- OUTSIDE RECORDS SUMMARY | 2025-01-05 12:07 | XMS_ITS | Encounter Summary ---
Author Organization [facility] Healthcare Address [address] [place] [address] Care Team Providers Care Computer System Validation Specialist Name Role Phone Debby Banks MD Primary Care Provider [phone] Encounter Details Date Type Department Care Team (Late st Contact Info) Description 01/27/2021 Telephone [facility] Department [address] [place] [phone] Sadie Steven, RT Social History Tobacco Use Types Packs/Day Years Used Date Smoking Tobacco: Never Assessed Comments Unknown Sex and Gender Information Value Date Recorded Sex Assigned at Not on file Legal Sex Female 7:12 PM BURNING SUPERVISOR Gender Identity Not on file Sexual [...] COVID: Suspected 04/09/2024 04/09/2024 04/09/2024 9:49 AM BURNING SUPERVISOR documented as of this encounter Care Teams Computer System Validation Specialist Relationship Specialty Start Date End Date Debby Banks MD PCP - General Pediatrics 12/15/20 documented as of this encounter
--- OUTSIDE RECORDS SUMMARY | 2025-01-05 12:07 | XMS_ITS | Clinical Summary ---
Author Organization [facility] Address [address] [place] [address] Care Team Providers Care X Ray Service Technician Name Role Phone Debby Banks MD Primary Care Provider [phone] Allergies Active Allergy Reactions Criticality Noted Date [...] on file Legal Sex Female 7:12 PM CARPORT ERECTOR Gender Identity Not on file Sexual Orientation Not on file History Length Weight Head Circum Date/Time Gestation Age D/C Weight APGARs Delivery Method Feeding 2004 Full term Obstetrics History Last Filed Vital Signs Vital Sign Reading Time Taken Comments Blood Pressure 120/78 04/09/2024 9:32 AM CARPORT ERECTOR Pulse 95 04/09/2024 9:32 AM CARPORT ERECTOR Temperature 36.8 C (98.2 F) 04/09/2024 9:32 AM CARPORT ERECTOR Respiratory Rate 20 04/09/2024 9:32 AM CARPORT ERECTOR Oxygen Saturation 99% 04/09/2024 9:32 AM CARPORT ERECTOR Inhaled Oxygen Concentration - - Weight 109.3 kg (241 lb) 04/09/2024 9:32 AM CARPORT ERECTOR Height 170.2 cm (5' 7) 04/09/2024 9:32 AM CARPORT ERECTOR Body Mass Index 37.75 04/09/2024 9:32 AM CARPORT ERECTOR Plan of Treatment Health Maintenance Due Date [...] 02/24/2016 Meningococcal Vaccine Completed 01/05/2021, 016 Insurance [facility] Care Teams X Ray Service Technician Relationship Specialty Start Date End Date Debby Banks MD PCP - General Pediatrics 12/15/20
--- OUTSIDE RECORDS SUMMARY | 2025-01-05 13:08 | XMS_ITS | Clinical Summary ---
Author Organization [facility] Address [address] [place] [address] Care Team Providers Care Rodding Machine Tender Name Role Phone Debby Banks MD Primary Care Provider [phone] Allergies Active Allergy Reactions Criticality Noted Date [...] on file Legal Sex Female 7:12 PM NETWORK ENGINEER Gender Identity Not on file Sexual Orientation Not on file History Length Weight Head Circum Date/Time Gestation Age D/C Weight APGARs Delivery Method Feeding 2005 Full term Obstetrics History Last Filed Vital Signs Vital Sign Reading Time Taken Comments Blood Pressure 120/78 04/09/2024 9:32 AM NETWORK ENGINEER Pulse 95 04/09/2024 9:32 AM NETWORK ENGINEER Temperature 36.8 C (98.2 F) 04/09/2024 9:32 AM NETWORK ENGINEER Respiratory Rate 20 04/09/2024 9:32 AM NETWORK ENGINEER Oxygen Saturation 99% 04/09/2024 9:32 AM NETWORK ENGINEER Inhaled Oxygen Concentration - - Weight 109.3 kg (241 lb) 04/09/2024 9:32 AM NETWORK ENGINEER Height 170.2 cm (5' 7) 04/09/2024 9:32 AM NETWORK ENGINEER Body Mass Index 37.75 04/09/2024 9:32 AM NETWORK ENGINEER Plan of Treatment Health Maintenance Due Date [...] 02/24/2016 Meningococcal Vaccine Completed 01/05/2021, 016 Insurance [facility] Care Teams Rodding Machine Tender Relationship Specialty Start Date End Date Debby Banks MD PCP - General Pediatrics 12/15/20
--- OUTSIDE RECORDS SUMMARY | 2025-01-05 13:08 | XMS_ITS | Encounter Summary ---
Author Organization [facility] Address [address] [place] [address] Care Team Providers Care Casing Material Weigher Name Role Phone Debby Banks MD Primary Care Provider [phone] Encounter Details Date Type Department Care Team (Late st Contact Info) Description 01/27/2021 Telephone [facility] Department [address] [place] [phone] Sadie Steven, RT Social History Tobacco Use Types Packs/Day Years Used Date Smoking Tobacco: Never Assessed Comments Unknown Sex and Gender Information Value Date Recorded Sex Assigned at Not on file Legal Sex Female 7:12 PM EMG TECHNICIAN Gender Identity Not on file Sexual [...] COVID: Suspected 04/09/2024 04/09/2024 04/09/2024 9:49 AM EMG TECHNICIAN documented as of this encounter Care Teams Casing Material Weigher Relationship Specialty Start Date End Date Debby Banks MD PCP - General Pediatrics 12/15/20 documented as of this encounter
--- OUTSIDE RECORDS SUMMARY | 2025-01-05 13:08 | XMS_ITS | Clinical Summary ---
Author Organization [facility] Address [address] [place] [address] Care Team Providers Care Vice President For Instruction Name Role Phone Hannah Ponce MD Unavailable Debby Banks MD Primary Care Provider [phone] Source Comments [facility],non-owned Affiliates and Associated Physician Practices is amultiple site organization consisting of ambulatory clinics and hospital sitesin [place], [place], [place] and [place]. This disclosure is being madepursuant to the Care Everywhere program and may not contain all information available regarding this patient. Last updated 18.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
--- NOTE | 2025-01-05 13:13 | ED.SKABFB ---
HPI - Skin/Abscess/Foreign Bdy General Chief complaint: Skin/Abscess/Foreign Body Stated complaint: to get packing removed from the top of my butt Time Seen by Provider: 01/05/25 12:00 History of Present Illness HPI narrative: This is a 19-year-old female who presents to the ED for wound check. Patient states that 4 days ago she had an abscess drained and 2 days ago had the dressing changed. She is referred to a surgeon but the appointment is not until next . She states that she was told to come back today for a recheck. She states that the drainage has improved. Denies fevers, chills. Related Data Allergies Allergy/AdvReac Type Severity Reaction Status Date / Time No Known Allergies Allergy Verified 01/05/25 11:46 Review of Systems Review of Systems: Gen.: Denies fevers or chills Eyes: Denies eye pain or visual change ENT: Denies congestion Respiratory: Denies shortness of breath or cough CV: Denies chest pain or palpitations GI: Denies abdominal pain nausea, emesis or diarrhea denies burning, urgency, frequency or hematuria Musculoskeletal: Denies back pain or muscle pain Neuro: Denies numbness, tingling, weakness or focal weakness Skin: Denies rash Except as documented, all other systems reviewed and negative [facility] Past Medical History Medical History History of epilepsy Migraines Social History Social History Smoking status: Current some day smoker Tobacco type: e-cigarettes/vaping Alcohol intake: never Substance use: never Substance use type: does not use Do You Feel Safe in your Home?: Yes Lack of Transportation: No Lack of Food: Never True Current Housing: I Have Housing Concerned About Future Housing: No Difficulty Paying Gas/Electric Bills: No Difficulty Paying for Meds: No Currently Unemployed: No Difficulty w/ Childcare or Family Care: No Exam Narrative: APPEARANCE: No acute distress, nontoxic, resting in bed EYES: EOMI HEENT: Normocephalic, atraumatic, OMM RESPIRATORY: No respiratory distress CARDIOVASCULAR: Appears well perfused ABDOMINAL: Nondistended MUSCULOSKELETAl: Moves all extremities. No clubbing, cyanosis or edema. NEURO: Awake and alert. Following commands, speech normal, no focal deficits SKIN:: Warm, dry. Dressing in place to the superior gluteal cleft with dried. Worsening illness drainage. Quarter-inch iodoform packing in place. PSYCHIATRIC: Normal affect/mood, Course Vital Signs Vital signs: Vital Signs Temperature 97.8 F 01/05/25 11:44 Pulse Rate 92 01/05/25 11:44 Respiratory Rate 18 01/05/25 11:44 Blood Pressure 122/66 01/05/25 11:44 Pulse Oximetry 98 01/05/25 11:44 Oxygen Delivery Room Air 01/05/25 11:44 Temperature 97.8 F 01/05/25 11:44 Pulse Rate 92 01/05/25 11:44 Respiratory Rate 18 01/05/25 11:44 Blood Pressure 122/66 01/05/25 11:44 Pulse Oximetry 98 01/05/25 11:44 Oxygen Delivery Room Air 01/05/25 11:44 MDM - Skin/Abscess/Foreign Bdy MDM Narrative Medical decision making narrative: 19-year-old female who presents ED for wound check. She did have a draining pilonidal abscess. Dressing and packing removed and there was purulosanguinous drainage that was expressed approximately 10 mL. Wound is repacked with quarter-inch iodoform gauze. Patient procedure well. Dressing was applied. Patient advised follow-up with her PCP as scheduled . Patient was agreeable to plan. Given strict return precautions. Differential Diagnosis Differential diagnosis: Likely abscess of skin or subcutaneous tissue Medical Records Attestation: I reviewed the patient's medical records. Discharge Plan Discharge Clinical Impression: Abscess of skin or subcutaneous tissue Qualifiers: Site of cutaneous abscess: buttock Qualified Code(s): L02.31 - Cutaneous abscess of buttock Patient Disposition: Home Condition: Stable Instructions: Antibiotic Form, Abscess (ED) Additional Instructions: Keep packing in place. Change dressing if it becomes soaked. Follow up with the PCP on Saturday as scheduled. Continue to follow surgeon next week as scheduled. Return to the ED for any new or worsening symptoms. Patient Language: Yoruba Prescriptions: No Action rizatriptan 5 mg tablet,disintegrating See Rx Instructions PO .COMPLEX Qty: 9 1RF Rx Instructions: take 1 tablet at onset of headache; if no relief, may repeat 1 tablet after at least 2 hrs PO Ubrelvy 50 mg tablet 50 mg PO ONCE PRN (Reason: migraine headache) Qty: 10 1RF Rx Instructions: as a single dose; may repeat once in >=2 hours after first dose if needed sulfamethoxazole-trimethoprim [Bactrim DS] 800-160 mg tablet 1 tablet PO Q12H Qty: 14 0RF Qulipta 30 mg tablet 30 mg PO DAILY Qty: 30 2RF Follow-up/Referrals: Stephen Hernandez MD [Primary Care Provider, Family Practice]
== END 2025-01-05 13:30 | disposition home or self-care (01) ==
PROVIDERS: Emergency Provider Student in an Organized Health Care Education/Training Program; PCP Family Medicine
DX: L02.31 Cutaneous abscess of buttock (principal); F17.290 Nicotine dependence, other tobacco product, uncomplicated; G40.909 Epilepsy, unspecified, not intractable, without status epilepticus
CPT/HCPCS: 99281